=== PATIENT | male | born 1995 | race Caucasian/White ===

== ENCOUNTER 2022-02-02 16:20 | Outpatient (REF) | payer OTHER, SELFPAY ==
[2022-02-04 11:19] LABS: COVID-19 RT-PCR UVMMC Result Negative (Negative)
== END 2022-02-02 16:21 | disposition home or self-care (01) ==
LOC: LBN 16:20
PROVIDERS: PCP Family Medicine; Visit Provider Physician Assistant Medical
DX: Z20.822 Contact with and (suspected) exposure to COVID-19 (principal); R05.8 Other specified cough
CPT/HCPCS: U0003